=== PATIENT | male | born 1935 | race Hispanic/Latino ===

== ENCOUNTER → 2018-02-22 | Outpatient (CLI) | payer MEDICARE ==
[~2018-02-22] MED LIST: AMLODIPINE BESYL5 MG PO; BACITRACIN 50,000 UNIT VIAL ONE; IOPAMIDOL 370 MG/ML 200 ML INFUS..BTL INJ ONE; OMEPRAZOLE40 MG PO; SODIUM CHLORIDE 0.9% 50ML 50 ML ONE
--- NOTE | 2018-02-22 10:22 | Diagnostic Imaging Report ---
PROCEDURE: X-RAY CHEST, TWO VIEWS COMPARISON: Images from CT-guided lung biopsy 02/08/2016. INDICATIONS: PROSTATE CANCER. HX LUNG CANCER. DENIES CHEST COMPLAINTS FINDINGS: Lungs are well-inflated. Previously described left upper lobe pulmonary mass is poorly visualized. Normal heart size with tortuosity and atherosclerotic calcification of the thoracic aorta. Lungs show no gross consolidation. Evaluation for small nodules is limited by interval progression of diffuse sclerotic lesions within the ribs and vertebral column. CONCLUSION: No acute cardiopulmonary abnormality. Poor visualization of previously described and biopsied left upper lobe pulmonary mass. Marked interval progression of now diffuse sclerotic metastatic disease. Nuclear medicine bone scan has been scheduled also for 02/22/2018. Dictated by: Glynn Hernández M.D. on 02/22/2018 at 10:23 Electronically approved by: Glnyn Hernández M.D. on 02/22/2018 at 10:23
--- NOTE | 2018-02-22 11:05 | Diagnostic Imaging Report ---
PROCEDURE: CT ABDOMEN AND PELVIS WITH CONTRAST TECHNIQUE: The abdomen and pelvis were scanned utilizing a multidetector helical scanner from the diaphragm to the lesser trochanter after the IV administration of 100 cc of Isovue 370 and the oral administration of water. Coronal and sagittal multiplanar reformations were obtained. COMPARISON: None. INDICATIONS: MALIGNANT NEOPLASM OF PROSTATE FINDINGS: LOWER THORAX: Trace left pleural effusion. HEPATOBILIARY: Multiple low attenuation lesions within the liver, the largest of which is within segment 2 and measures 1.9 cm. The larger lesions have average internal attenuation less than 20 Hounsfield units in keeping with simple cysts. Subcentimeter lesions are too small to further characterize but likely also represent small cysts. No additional focal hepatic lesion or intrahepatic biliary ductal dilatation. Gallbladder is unremarkable. SPLEEN: No splenomegaly. PANCREAS: No focal masses or ductal dilatation. ADRENALS: No adrenal nodules. KIDNEYS/URETERS: 1.5 cm parenchymal cyst in the right kidney. 1.4 cm parenchymal cyst in the lower pole of left kidney. Additional subcentimeter hypoattenuating renal foci bilaterally, too small to further characterize but likely represent additional small cysts. No hydronephrosis. No calculi. PELVIC ORGANS/BLADDER: Diverticula along the left side of the urinary bladder measure 2.1 and 2 cm. The urinary bladder is otherwise incompletely distended. Mild mass effect on the bladder base is secondary to median lobe hypertrophy. PERITONEUM / RETROPERITONEUM: No ascites. No pneumoperitoneum. LYMPH NODES: No pelvic sidewall, retroperitoneal, or mesenteric lymphadenopathy. VESSELS: Atherosclerotic calcification of the abdominal aorta, major branch vessels, and iliac arterial systems without aneurysmal dilatation. Portal vein, splenic vein, and central superior mesenteric vein are patent. GI TRACT: The large bowel is notable for innumerable sigmoid diverticula without wall thickening or inflammatory change. Diverticula of lesser concentration along the transverse and descending colon. Normal appendix. No small bowel dilatation to suggest obstruction. BONES AND SOFT TISSUES: No focal soft tissue abnormalities. Extensive, confluent sclerotic lesions involving essentially the entire axial and visualized portions of the appendicular skeleton, including the spine, pelvis, ribs, femurs, and partially visualized right scapula. Several of the rib lesions show aggressive periosteal reaction and associated pleural convexity. No pathologic fractures. IMPRESSION: Widespread skeletal metastatic disease. No pathologic fractures. No evidence of visceral abdominal or pelvic metastatic disease. Small bladder diverticula probably related to bladder outlet obstruction. Trace left pleural effusion. Atherosclerotic vascular disease. Dictated by: Glynn Hernández M.D. on 02/22/2018 at 11:06 Electronically approved by: Glynn Hernández M.D. on 02/22/2018 at 11:06
--- NOTE | 2018-02-22 20:24 | Diagnostic Imaging Report ---
Bone Scan, delayed phase INDICATION: 82 M with metastatic prostate cancer; restaging COMPARISON: Most recent prior bone scan 03/24/2017 REPORT: Approximately 3 hours following intravenous administration of 23 mCi of Tc-99m MDP, delayed total body images in the anterior and posterior projections and selected spot images were obtained. Skull: Appearance is unchanged. Confluent tracer is seen in the frontal and bilateral parietal bones. Spine: Appearance of the spine is unchanged. Increased tracer is seen throughout the thoracic spine although the lumbar spine appears spared. Thorax: Diffusely increased tracer is again seen in the ribs anteriorly and posteriorly. Areas appear more confluent in several ribs compared to the prior study. Tracer is more diffusely increased in the clavicles and new increased tracer tracer in seen along the superior spine of the right scapula. The appearance of the manubrium and sternum is unchanged. Pelvis: Diffusely increased tracer is seen in the bones of the pelvis but is unchanged compared to the prior bone scan. Extremities: Tracer is more confluent increased in the humeri, femora and tibiae compared to the prior study No abnormal accumulation of tracer is seen in the soft tissues or urinary tract. 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 Some interval progression is apparent when compared to the most recent prior bone scan of 03/24/2018. Signed by: Dr. Katiuska Moscoso M.D. on 02/22/2018 8:21 PM
== END ==
LOC: NM 08:50
PROVIDERS: ATTEND Urology
DX: C61 Malignant neoplasm of prostate (principal)
CPT/HCPCS: 71046; 74177; 78306; A9503; Q9967

== ENCOUNTER → 2019-01-24 | Outpatient (CLI) | payer MEDICARE ==
[~2019-01-24] MED LIST changes: -BACITRACIN 50,000 UNIT VIAL ONE; +SODIUM CHLORIDE 0.9% 100 ML 100 ML ONE
[2019-01-24 09:54] LABS: CREATININE, SERUM 1.18 mg/dL (0.72-1.25)
--- NOTE | 2019-01-24 11:51 | Diagnostic Imaging Report ---
RIGHT HIP - 3 IMAGES RIGHT FEMUR - 4 IMAGES HISTORY: Malignant neoplasm of prostate COMPARISON: CT of the pelvis January 24, 2019. Nuclear medicine bone scan the 2017. FINDINGS: Bones: Diffusely increased heterogeneous bone mineral density. No acute displaced fracture. Joints: Scattered degenerative changes, most notably mild of the right sacroiliac joint. Soft tissues: Diffuse scattered atherosclerotic vascular calcifications. Multiple nonspecific soft tissue calcifications, the majority are likely pelvic phleboliths. IMPRESSION: 1. Diffuse osseous metastatic disease. 2. No acute displaced fracture. Signed by: Dr. Cyrus Mckinnon D.O., M.M.M. on 01/24/2019 11:47 AM
--- NOTE | 2019-01-24 12:11 | Diagnostic Imaging Report ---
Frontal and lateral views of the chest. HISTORY: MALIGNANT NEOPLASM OF PROSTATE COMPARISON: None available. DISCUSSION: Lungs: The heterogeneous, diffusely increased density of the bones, partially obscures evaluation of the underlying lungs. Low lung volumes result in bibasilar vascular crowding, accentuation of the pulmonary interstitial markings, central pulmonary vasculature, and the cardiac silhouette. Allowing for these limitations, the findings are as follows: Mild bibasilar atelectasis, left greater than right. No definitive pulmonary masses or consolidative pneumonia, within the stated limitations. Pleura: No pleural effusion or pneumothorax. Heart and mediastinum: The cardiomediastinal silhouette appears unremarkable. Atherosclerotic vascular calcifications at the aortic arch. Bones and soft tissues: Diffuse heterogeneously increased density of the bones. IMPRESSION: 1. Diffuse osseous metastatic disease, which limits evaluation of the lungs. 2. Mild bibasilar atelectasis, left greater than right. Signed by: Dr. Cyrus Mckinnon D.O., M.M.M. on 01/24/2019 12:07 PM
--- NOTE | 2019-01-24 16:00 | Diagnostic Imaging Report ---
EXAM: CT of the abdomen and pelvis WITH contrast HISTORY: MALIGNANT NEOPLASM OF PROSTATE COMPARISON: None available. TECHNIQUE: The abdomen and pelvis were scanned utilizing a multidetector helical scanner. Coronal and sagittal reformats are provided. PROTOCOL: Routine IV CONTRAST: 100 cc of Isovue-370. ORAL CONTRAST: Water RADIATION DOSE: Total DLP: 237.45 mGy*cm Estimated effective dose: (DLP x 0.015 x size factor) Dose modulation, iterative reconstruction, and/or weight based adjustment of the mA/kV was utilized to reduce the radiation dose to as low as reasonably achievable. COMPLICATIONS: None FINDINGS: LOWER THORAX: Numerous bilateral 3 to 5 mm pulmonary nodules, right greater than left. A small low-density left pleural effusion. HEPATOBILIARY: Hypodensities within both lobes of the liver, the majority are too small to characterize, the largest is 1.7 cm in diameter on the left, measuring fluid density (series 2 image 19). Mild geographic hypodensity adjacent to the falciform ligament, likely focal fatty infiltration. No biliary dilation. No calcified gallstone. SPLEEN: No splenomegaly. PANCREAS: No focal masses or ductal dilatation. ADRENALS: No discrete adrenal nodule. KIDNEYS/URETERS: No hydronephrosis, stones, or definite solid mass lesions. Bilateral too small to characterize hypodensities, statistically most likely small cyst. A 1.2 cm fluid density at the interpolar region on the right and a 1.5 cm fluid density near the inferior pole and the left, compatible with cysts. PELVIC ORGANS/BLADDER: The urinary bladder is partially decompressed. Contiguous with the left posterolateral aspect, a 2.1 and 2.2 cm fluid density, compatible with diverticuli. GI TRACT: Extensive descending and sigmoid diverticulosis, without evidence of acute diverticulitis. The appendix is normal. No bowel dilation. PERITONEUM / RETROPERITONEUM: No free air or fluid. LYMPH NODES: No pathologically enlarged lymph node. VESSELS: Extensive atherosclerotic vascular calcifications, including the coronary arteries. BONES: Diffuse heterogeneously increased bone mineral density SOFT TISSUES: Unremarkable. IMPRESSION: 1. Extensive osseous metastatic disease. 2. Numerous bilateral pulmonary nodules worrisome for additional pulmonary metastatic disease. 3. Coronary atherosclerosis. 4. Extensive sigmoid diverticulosis. 5. Incidental hepatic and renal cysts. Signed by: Dr. Cyrus Mckinnon D.O., M.M.M. on 01/24/2019 3:56 PM
--- NOTE | 2019-01-24 19:12 | Diagnostic Imaging Report ---
Bone Scan, delayed phase INDICATION: Prostate cancer; restaging COMPARISON: Most recent prior bone scan 02/22/2018 REPORT: Approximately 3 hours following intravenous administration of 28 mCi of Tc-99m MDP, delayed total body images in the anterior and posterior projections and selected spot images were obtained. Appearance of today's study is unchanged compared to the most recent prior bone scan of 02/22/2018. Foci of increased tracer are again seen in the skull bilaterally, throughout the spine, ribs, scapulae clavicles, sternum, pelvis, proximal long bones of all extremities and in the bilateral tibiae. No abnormal accumulation of tracer is seen in the soft tissues or urinary tract. IMPRESSION: Stable widespread metastatic bone disease in the skull, spine, thorax, pelvis and extremities. Scan has the appearance of a superscan. Signed by: Dr. Katiuska Moscoso M.D. on 01/24/2019 7:08 PM
== END ==
LOC: CT 08:49
PROVIDERS: ATTEND Urology
DX: C61 Malignant neoplasm of prostate (principal)
CPT/HCPCS: 36415; 71046; 73502; 73552; 74177; 78306; 82565; 84520; A9503; Q9967